=== PATIENT | female | born 1955 | race Caucasian/White ===

== ENCOUNTER 2018-03-23 12:07 | Emergency (ER) | payer BC ==
[~2018-03-23] VITALS: Ht 157.5 cm; Wt 63.6 kg
[~2018-03-23 12:07] MED LIST: LEVAQUIN500 MG PO; PREDNISONE50 MG PO; VENTOLIN HFA18 GM IH
[2018-03-23 13:32] LABS: HEMATOCRIT 42.6 % (36.0-46.0); HEMOGLOBIN 14.6 G/DL (11.9-15.5); MCH 30.9 PG (29.0-34.0); MCHC 34.3 G/DL (30.0-36.0); MCV 90.1 FL (83-99); PLATELET COUNT 221 K/uL (156-360); RBC DIS.WIDTH-CV 11.9 % (11.8-14.6); RBC DIS.WIDTH-SD 39.1 % (39-53); RED BLOOD COUNT 4.73 M/uL (3.80-5.20); WHITE BLOOD COUNT 7.6 K/uL (4.1-10.2)
[2018-03-23 13:41] LABS: CHLORIDE 107 mEq/L (99-109); SODIUM 142 mEq/L (136-147)
[2018-03-23 13:42] LABS: GLUCOSE 92 mg/dL (70-99)
[2018-03-23 13:46] LABS: CREATININE 0.8 mg/dL (0.6-1.3); GFR ESTIMATE (CALCULATED) > 59 mL/min/
[2018-03-23 13:47] LABS: UREA NITROGEN (BUN) 19 mg/dL (9-23)
[2018-03-23 13:49] LABS: URIC ACID 2.9 mg/dL (3.1-9.2)
[2018-03-23 13:56] LABS: ERTH.SED.RATE 12 MM/HR (0-30)
[2018-03-23 15:33] LABS: C-REACTIVE PROTEIN 8.5 MG/L (0-10)
[2018-03-23 15:43] LABS: ALBUMIN 3.9 G/DL (3.2-4.8); ALKALINE PHOSPHATASE 77 IU/L (3-129); ALT (GPT) 14 IU/L (3-49); AST (GOT) 15 IU/L (2-34); DIRECT BILIRUBIN 0.1 mg/dL (0.0-0.3); TOTAL BILIRUBIN 0.7 MG/DL (0.0-1.0); TOTAL PROTEIN 6.7 G/DL (6.4-8.3)
[2018-03-23] MEDS ORDERED: MOBIC7.5 MG PO (15:56)
[2018-03-23] MEDS ORDERED: TRAMADOL HCL50 MG PO (15:56)
[2018-03-23 16:10] VITALS: BP 147/84
== END 2018-03-23 16:13 | disposition home or self-care (01) ==
LOC: RME 12:07 → EME 12:07 → RME 16:13
PROVIDERS: Physician Assistant
DX: M76.9 Unspecified enthesopathy, lower limb, excluding foot (principal); Z87.891 Personal history of nicotine dependence; Z88.6 Allergy status to analgesic agent
CPT/HCPCS: 73564; 80048; 80076; 84550; 85027; 85651; 86140; 99281; 99284; J1885